=== PATIENT | female | born 1985 | race Caucasian/White ===

== ENCOUNTER 2018-01-07 12:27 | Outpatient (CLI) | payer OTHER ==
[2018-01-07 14:36] LABS: BHCG - Serum Negative (NEGATIVE); Pregs Control Background? CLEAR/WHITE (CLR/WHITE); Pregs Control Bar Appear? YES (CONTROL BAR)
== END 2018-01-07 12:28 | disposition home or self-care (01) ==
LOC: LABBT 12:27
PROVIDERS: ATTEND Obstetrics & Gynecology
DX: Z01.812 Encounter for preprocedural laboratory examination (principal); N83.201 Unspecified ovarian cyst, right side; N92.6 Irregular menstruation, unspecified
CPT/HCPCS: 84703

== ENCOUNTER 2018-01-11 07:07 | Day surgery (SDC) | payer OTHER ==
[2018-01-07 12:21] VITALS: BMI 25.8
[2018-01-11] MEDS ORDERED: Bupivacaine HCl 0.5%/Epinephrine 1:200,000/PF 30 ml Vial ONE (09:38)
[2018-01-11] MEDS ORDERED: Fentanyl 100 MCG/2 ML VIAL ONE (09:49)
[2018-01-11] MEDS ORDERED: Midazolam HCl 2 mg/2 ml Vial ONE (09:51)
[2018-01-11] MEDS ORDERED: Promethazine HCl 25 MG/ML VIAL ONE (12:02)
[2018-01-11] MEDS ORDERED: HYDROcodone/Acetaminophen 5/325 mg Tablet ONE (12:58)
--- NOTE | 2018-01-11 13:20 | OP ---
DATE OF SERVICE: 01/11/2018 PREOPERATIVE DIAGNOSES: 1. A 32-year-old female, G1, P0-0-1-0, who is with irregular menses. 2. Known right ovarian cyst greater than 6 cm. 3. Painful bleeding/dysmenorrhea. 4. Desire for removal of Nexplanon device. POSTOPERATIVE DIAGNOSES: 1. A 32-year-old female, G1, P0-0-1-0, who is with irregular menses. 2. Known right ovarian cyst greater than 6 cm. 3. Painful bleeding/dysmenorrhea. 4. Desire for removal of Nexplanon device. 5. Endometriosis with noted uterosacral inferior windows as well as chocolate cyst in the bilateral mesosalpinx as well as adjacent to the left uterosacral ligament. PROCEDURES PERFORMED: 1. Diagnostic laparoscopy. 2. Fulguration of endometriosis. 3. Cystectomy on the right ovary x2. 4. Removal of the Nexplanon device. SURGEON: Anita Olsen M.D. DYE EXPERT: None. ANESTHESIA: General. ESTIMATED BLOOD LOSS: Negligible, less than 5 mL. URINE OUTPUT: Straight drained to the Bonilla for about 400 mL. SPECIMENS REMOVED: The Nexplanon device. CLINICAL HISTORY: This patient is a 32-year-old female, G1, P0-0-1-0, who presented to my office with a complaint of irregular menses after her Nexplanon device. She had a device inserted ap proximately a year prior and has struggled with irregular periods not essentially heavy; however, sandoval g and irregular. The patient has been evaluated on multiple times with ultrasonography and it was no basil recently that she had a 6 cm right ovarian simple cyst. The patient was advised that due to the presence of this cyst, she may be in jeopardy of ovarian torsion. The risks, benefits and possible c omplications as well as alternatives to conservative versus surgical management were discussed. The patient opted for surgical management. It was also noted that she faulted her Nexplanon device for m ost of her irregularity in her periods and she would rather go back to an oral contraceptive pill. S he desired the Nexplanon device removed after one of the years. DETAILS OF PROCEDURE: The patient was taken to the operating room where general anesthesia was obtai miguel. She was laid in the supine position with her legs in Yellofin stirrups. She was prepped and dr aped in the usual sterile fashion. A lateral retractor was placed into the vagina and the cervix was seen. This was grasped with a single tooth tenaculum and a Bonilla catheter was placed atraumatically with drainage of clear urine. A Hulka uterine manipulator was placed easily and once secured, the t enaculum and a lateral retractor were removed. The legs were placed in a downward position and the a ttention was turned to the abdomen. The abdomen was tented and an incision with the 11 blade was mad e for umbilical border. Once this was performed, the 5 mm trocar under direct view was used to inser t the camera into the abdomen while tenting the abdomen. Once in the abdomen, the CO2 gas was used t o insufflate the abdomen with a pressure less than 15 mmHg. A general survey of the pelvis noted a g eneralized inflammatory process and after making a second port site on the patient's right lower quad rant under direct visualization with a 5 mm trocar, it was noted that the patient has endometrial cho colate cyst as well as areas of inflammation under the ovarian gutters. The patient also had fairly large uterosacral ligament windows that also had some inflammation noted. The patient was irrigated copiously and once that was completed, the fulguration of the endometriosis lesions was performed. T he right ovary also had a cyst that was smaller than the 6 cm that was noted on ultrasound. Two cyst s were cauterized with the energy through the scissors and once the cysts were drained and cauterized , there was excellent hemostasis. The abdomen was then copiously irrigated once again and the fluid was suctioned out of the pelvis. Once this was completed, the trocars were removed. Once the trocar s were removed and the abdomen was deflated of the CO2 gas, the incision sites were closed with a 4-0 Monocryl with excellent hemostasis. These incision sites were reinforced with Steri-Strips and Mast isol and Band-Aids were placed over the incisions. The attention was then turned back down to the va ginal area where the Hulka manipulator was removed. The introitus was cleansed of all debris and the patient was put in recovery position. The Nexplanon, left arm was then put on arm board and prepped with ChloraPrep and draped to create a sterile field. An 11 blade was used to make an incision wher e the previous incision was placed and using a combination of traction and this blade, the Nexplanon device was able to slide out of the incision. The device was discarded. It was fully intact when it was removed and the insertion site was closed with a Steri-Strip and Mastisol. Injection of 0.5% Ma rcaine was performed on this incision and had actually been also performed at the 2 port site incisio ns for continued analgesia. The patient tolerated the procedure well. Band-Aid was placed over the removal site and the patient was transferred to a [facility] center for transfer to the recovery room. All need le, sponge, lap, and instrument counts were correct x2 at the end of the procedure. There were no ot her issues surrounding this procedure.
[2018-01-11] MEDS ORDERED: PROPOFOL 200 MG/20 ML VIAL ONE (13:34)
[2018-01-11] MEDS ORDERED: Ketorolac Tromethamine 30 MG/ML VIAL ONE (13:34)
[2018-01-11] MEDS ORDERED: Glycopyrrolate 0.2 MG/ML 5 ML SYRINGE ONE (13:34)
[2018-01-11] MEDS ORDERED: ePHEDrine/0.9% NaCl/PF SYRINGE 50 mg/10 ml ONE (13:34)
[2018-01-11] MEDS ORDERED: Lidocaine 1% PF 5 ML VIAL ONE (13:34)
[2018-01-11] MEDS ORDERED: PHENYLEPHRINE-NS 100 MCG/ML 10 ML SYRINGE ONE (13:34)
[2018-01-11] MEDS ORDERED: Ondansetron PF 4 MG/2 ML Vial ONE (13:34)
[2018-01-11] MEDS ORDERED: Dexamethasone 20 MG/5 ML VIAL ONE (13:34)
== END 2018-01-11 14:00 | disposition home or self-care (01) ==
LOC: SDC 07:07
PROVIDERS: ATTEND Obstetrics & Gynecology
PROC: 0U544ZZ Destruction of Uterine Supporting Structure, Percutaneous Endoscopic Approach (ICD-10-PCS; principal; 2018-01-11)
PROC: 0XP Anatomical Regions, Upper Extremities, Removal (ICD-10-PCS; principal; 2018-01-11)
PROC: 0UB04ZZ Excision of Right Ovary, Percutaneous Endoscopic Approach (ICD-10-PCS; principal; 2018-01-11)
DX: N83.201 Unspecified ovarian cyst, right side (principal); N80.8 Other endometriosis; G43.909 Migraine, unspecified, not intractable, without status migrainosus; F34.1 Dysthymic disorder; F32.9 Major depressive disorder, single episode, unspecified; Z79.899 Other long term (current) drug therapy; Z97.5 Presence of (intrauterine) contraceptive device
CPT/HCPCS: 96374; J0131; J0670; J2250; J2550; J3010